=== PATIENT | male | born 2000 | race Caucasian/White ===

== ENCOUNTER 2018-03-17 20:31 | Emergency (ER) | payer SELFPAY ==
[~2018-03-17] VITALS: Wt 90.9 kg
[2018-03-17 21:07] LABS: COLLECTION METHOD CLEAN CATCH
[2018-03-17 21:09] LABS: BASO # 0.1 (0.0-0.2); BASO % 0.4 % (0.0-2.0); GRAN # 14.9 (1.4-6.5); GRAN % 89.3 % (42.2-75.2); HEMOGLOBIN 16.1 g/dl (12.5-16.1); LYMPH # 0.9 (1.2-3.4); LYMPH % 5.3 % (20.0-51.0); MEAN CELL VOLUME 83 fl (80.0-95.0); MEAN CORPUSCULAR HEMOGLOBIN 28 pg (26.0-32.0); MEAN CORPUSCULAR HGB CONC 34 g/dl (33.0-37.0); MEAN PLATELET VOLUME 9.8 fl (7.4-10.4); MONO # 0.8 (0.1-0.6); MONO % 4.7 % (1.7-9.3); PLATELET COUNT 251 K/mm3 (130-400); RED BLOOD COUNT 5.67 M/mm3 (4.20-5.60); REDCELL DISTRIBUTION WIDTH-CV 12.6 % (11.5-14.5)
[2018-03-17 21:13] LABS: MUCOUS Present /lpf; PH 6 (5-8); SQUAMOUS EPITHELIAL None Seen /hpf; URINE APPEARANCE Clear; URINE BACTERIA None Seen /hpf; URINE BILIRUBIN Negative (NEGATIVE); URINE BLOOD Negative (NEGATIVE); URINE COLOR Yellow; URINE GLUCOSE Negative (NEGATIVE); URINE KETONE Negative (NEGATIVE); URINE LEUKOCYTE ESTERASE Negative (NEGATIVE); URINE NITRATE Negative (NEGATIVE); URINE PROTEIN(semi-quant) Negative (NEGATIVE); URINE RBC 0-2 /hpf
[2018-03-17 21:20] LABS: ALBUMIN 4.8 gm/dL (3.5-5.0); CREATININE, serum 0.99 mg/dL (0.66-1.25); POTASSIUM 3.9 mmol/L (3.4-5.0); TOTAL PROTEIN 8.6 gm/dL (6.4-8.2)
[2018-03-17 21:28] LABS: C-REACTIVE PROTEIN 2.5 mg/dL (0.0-0.9)
[2018-03-17] MEDS ORDERED: ZOFRAN ODT4 MG PO (22:27)
[2018-03-17 22:50] VITALS: BP 124/79; PULSE 115; TEMP 102.1
== END 2018-03-17 22:52 | disposition home or self-care (01) ==
LOC: COL.ER 20:31
PROVIDERS: Physician Assistant
DX: R10.31 Right lower quadrant pain (principal); R10.32 Left lower quadrant pain; R11.0 Nausea
CPT/HCPCS: J7030; Q9967

== ENCOUNTER 2019-03-10 11:44 | Observation (INO) | payer SELFPAY ==
[2019-03-10] VITALS (9 sets, daily range): BP systolic 107–121; BP diastolic 43–57; PULSE 70–83; TEMP 98.2
[~2019-03-10] VITALS: Ht 175.3 cm; Wt 95.5 kg
[~2019-03-10 11:44] MED LIST: ZOFRAN ODT4 MG PO
[2019-03-10 12:20] LABS: BASO % 0.3 % (0.0-2.0); EOS # 0.1 (0.0-0.7); EOS % 0.6 % (0-4.0); GRAN # 12.5 (1.4-6.5); GRAN % 80.1 % (42.2-75.2); HEMOGLOBIN 16.1 g/dl (13.5-18.0); LYMPH # 2.1 (1.2-3.4); LYMPH % 13.8 % (20.0-51.0); MEAN CELL VOLUME 83 fl (80.0-100.0); MEAN CORPUSCULAR HEMOGLOBIN 28 pg (27.0-31.0); MEAN CORPUSCULAR HGB CONC 34 g/dl (33.0-37.0); MEAN PLATELET VOLUME 9.9 fl (7.4-10.4); MONO # 0.8 (0.1-0.6); MONO % 4.9 % (1.7-9.3); PLATELET COUNT 221 K/mm3 (130-400); RED BLOOD COUNT 5.67 M/mm3 (4.20-5.60); REDCELL DISTRIBUTION WIDTH-CV 12.4 % (11.5-14.5)
[2019-03-10 12:36] LABS: ALANINE AMINOTRANSFERASE 27 U/L (21-72); ALBUMIN 4.9 gm/dL (3.5-5.0); ALKALINE PHOSPHATASE 92 U/L (50-136); ANION GAP 12 mmol/L (7-16); AST,SGOT 26 U/L (15-37); BLOOD UREA NITROGEN 15 mg/dL (9-20); CARBON DIOXIDE 22 mmol/L (22-30); CHLORIDE 107 mmol/L (98-107); CREATININE, serum 0.86 (0.66-1.25); GLUCOSE 112 mg/dL (74-106); LIPASE 41 U/L (23-300); SODIUM 142 mmol/L (137-145); TOTAL PROTEIN 8.1 gm/dL (6.4-8.2)
[2019-03-10 12:40] LABS: C-REACTIVE PROTEIN < 0.5 mg/dL (0.0-0.9)
[2019-03-10 13:50] LABS: COLLECTION METHOD CLEAN CATCH
[2019-03-10 13:58] LABS: MUCOUS Present /lpf; PH 7 (5-8); SQUAMOUS EPITHELIAL None Seen /hpf; URINE APPEARANCE Hazy; URINE BACTERIA Rare /hpf; URINE BILIRUBIN Negative (NEGATIVE); URINE BLOOD Negative (NEGATIVE); URINE COLOR Yellow; URINE GLUCOSE Negative (NEGATIVE); URINE KETONE Negative (NEGATIVE); URINE LEUKOCYTE ESTERASE Negative (NEGATIVE); URINE NITRATE Negative (NEGATIVE); URINE PROTEIN(semi-quant) Negative (NEGATIVE); URINE RBC 0-2 /hpf
--- NOTE | 2019-03-10 19:15 | NUR ---
Pt. arrived to the floor from PACU by stretcher. Pt. able to independently transfer to the bed. Pt. is A&OX3, assessment complete. IV to lt. ac patent, IV fluids infusing per orders. Abd. incisions X3, CDI with bandaids. Pt. denies pain or other needs at this time. Call light within reach.
[2019-03-11 04:05] VITALS: BP 93/39; PULSE 83; TEMP 97.7
--- NOTE | 2019-03-11 06:06 | NUR ---
Pt. slept well through the night. Pt. remains A&OX3. INT to rt. ac remains patent. Pt. has not had pain through the night. Pt. denies pain or other needs at this time. Call light within reach.
[2019-03-11 07:46] VITALS: BP 117/53; PULSE 69; TEMP 97.6
--- NOTE | 2019-03-11 09:00 | NUR ---
Patient alert and oriented, answers questions appropriately. See assessment. Abdomen soft, non tender, non distended. Bowel sounds hyperactive x4 quads. Lap sites with edges well approximated, no drainage noted. No c/o at this time.
--- NOTE | 2019-03-11 10:13 | NUR ---
Initial visit; Patient thanked Chief Substation Operator for stopping by and offering God's blessings. Patient had support of a friend who was present.
--- NOTE | 2019-03-11 11:51 | NUR ---
Discharge instructions reviewed with patient, verbalized understanding. Discharged via wheelchair to auto/home with friends at 1150.
== END 2019-03-11 11:50 | disposition home or self-care (01) ==
LOC: COL.ER 11:44 → SURG 17:07
PROVIDERS: Emergency Medicine; ADMIT Surgery
DX: K35.80 Unspecified acute appendicitis (principal); Z88.6 Allergy status to analgesic agent
CPT/HCPCS: G0378; G0379; J1100; J1885; J2405; J2543; J2550; J2704; J2710; J3010; J7030; Q9967